=== PATIENT | female | born 1945 | race African-American/Black ===

== ENCOUNTER → 2018-05-31 | Outpatient (CLI) | payer OTHER ==
[~2018-05-31] MED LIST: ALBU2.5V14 NEB; AMLO10TA8 PO; ATORVASTATIN CA80 MG PO; AZIT250T6 PO; FLUT16SP NS; HYDR-2868 PO; HYDR20TA17 PO; LATA2.5D3 EACHEYE; LEVE10007 PO; LOPE2TAB27 PO; METO100T7 PO; OMEP40CA5 PO; OXYC5CAP PO; POTA20TA82 PO; PRAM0.255 PO
--- NOTE | 2018-05-31 13:58 | KCIC ---
MRA Brain History: Brain aneurysm, recent seizure Technique: 3-D wyil-aw-byaand MR angiography was performed of the brain. Comparison: None Findings: Determination of any degree of stenosis is based on NASCET criteria. There is some motion degradation. Basilar artery is supplied by the larger caliber right intradural vertebral artery. Distal aspect of the left intradural vertebral artery is very small. Appearance of decreased internal flow related enhancement of the proximal basilar artery may be accentuated by motion and tortuosity otherwise difficult to accurately evaluate. There is patent right posterior communicating artery, tiny left posterior communicating artery. There is visualization of segments of bilateral superior cerebellar arteries and AICAs. There is visualization of segments of bilateral PICAs, not fully seen. There is aplastic right P1 segment. There is visualization of the internal carotid arteries bilaterally at the skull base. Allowing for motion, no significant intracranial aneurysm is identified. Other than area of decreased flow-related enhancement in the proximal basilar artery, no significant stenosis is identified. There is patent anterior communicating artery. Impression: 1. Exam is degraded by some motion. There is appearance of decreased flow-related enhancement in the proximal basilar artery although findings may be accentuated by motion and tortuosity, overall caliber within normal limits. No intracranial aneurysm is identified. There is -type right posterior cerebral artery. Electronically signed by: Mario Mccloud MD (05/31/2018 1:55 PM) [facility]
== END | disposition home or self-care (01) ==
LOC: KCIC MRI 12:02
PROVIDERS: ATTEND Family Medicine
DX: I67.1 Cerebral aneurysm, nonruptured (principal)
CPT/HCPCS: 70544

== ENCOUNTER → 2018-08-09 | Day surgery (SDC) | payer OTHER ==
[~2018-08-09] MED LIST changes: +IV RINGERS,LACTATED 1000ML 1,000 ML IV SCH; +LIDOCAINE 2% PF 5 ML VIAL. ONE; +PROPOFOL 40 ML IV ONE
[2018-08-09 17:45] VITALS: BP 176/62
--- NOTE | 2018-08-11 18:06 | PATHOLOGY ---
[facility] Accession Number: [id number] . 01 Material submitted: . PART A: splenic flexure - SPLENIC FLEXURE POLYP PART B: colon - RANDOM COLON BIOPSY PART C: cecum - CECAL POLYP . 01 Clinical history: . Diarrhea, weight loss . 02 Diagnosis: A. Colon biopsy, splenic flexure polyp: - Tubular adenoma. . B. Random colon biopsies: - No significant pathologic abnormalities. . C. Colon biopsies, cecal polyps: - Tubular adenomas. (JPM:[facility] 08/11/2018) RUST/08/11/2018 . 02 Comment: Sections of the splenic flexure and cecal biopsies appear similar and reveal tubular adenomas showing no high-grade dysplasia or evidence of malignancy. . Sections of the random colon biopsy reveal multiple segments of colonic mucosa. There is no evidence of a chronic destructive colitis, lymphocytic colitis, or collagenous colitis. (JP:[facility] 08/11/2018) . 02 Electronically signed: . Cody Baum MD, Pathologist NPI- [id number] . 01 Gross description: . A. Received in formalin labeled "De Luna, Vera, splenic flexure polyp," is a 0.6 x 0.4 x 0.4 cm polypoid piece of locke soft tissue. The margin is inked and the tissue is sectioned perpendicular to the margin and submitted in its entirety in cassette A1. . B. Received in formalin labeled "De Luna, Vera, random colon BX," are 4 segments of locke soft tissue measuring 1.6 x 0.9 x 0.3 cm in aggregate dimensions and ranging from 0.4 to 0.6 cm in maximum dimension. The specimen is submitted entirely in cassette B1. . C. Received in formalin labeled "De Luna, Vera, cecal polyp," and additionally labeled on the requisition as "polyps," are multiple segments of locke soft tissue measuring 1.9 x 0.9 x 0.3 cm in aggregate dimensions. The specimen is filtered and entirely submitted in cassette C1. (TSD; 08/10/2018) TOB/TOB . 02 Pathologist provided ICD-10: D12.3, D12.0, R19.7 . 02 CPT . 968696, 816130, 022162 Specimen Comment: A courtesy copy of this report has been sent to Specimen Comment: [phone], . Specimen Comment: Report sent to / DR SCHNEIDER Performed at: [facility] [address] [place] [address] [address], [place] [id number] MD Sudhir Bah MD Phone: [phone] [facility]formed at: [facility] [address] [place] [address], [place] [id number] MD Cody Baum MD Phone: [phone]
== END ==
LOC: ENDOS 15:48
PROVIDERS: ATTEND Internal Medicine Gastroenterology
DX: D12.0 Benign neoplasm of cecum (principal); D12.3 Benign neoplasm of transverse colon; K29.50 Unspecified chronic gastritis without bleeding; K64.0 First degree hemorrhoids; I10 Essential (primary) hypertension; Z90.49 Acquired absence of other specified parts of digestive tract; Z90.710 Acquired absence of both cervix and uterus; Z98.890 Other specified postprocedural states
CPT/HCPCS: 43235; 45380; 45385; 88305; J2001; J2704